=== PATIENT | male | born 1990 | race Caucasian/White ===

== ENCOUNTER → 2018-07-07 | Outpatient (CLI) | payer BC ==
[~2018-07-07] MED LIST: NORCO 325 MG-51 TAB
== END ==
LOC: COL.RAD 14:46
DX: C62.02 Malignant neoplasm of undescended left testis (principal); K80.20 Calculus of gallbladder without cholecystitis without obstruction; L92.8 Other granulomatous disorders of the skin and subcutaneous tissue; Z90.79 Acquired absence of other genital organ(s); Z90.5 Acquired absence of kidney; Z98.890 Other specified postprocedural states
CPT/HCPCS: Q9967